=== PATIENT | male | born 1965 | race Caucasian/White ===

== ENCOUNTER 2022-07-30 13:48 | Emergency (ER) | payer BC ==
[~2022-07-30] VITALS: Ht 175.3 cm; Wt 90.9 kg
[2022-07-30 15:42] VITALS: BP 130/75
[2022-07-30] MEDS ORDERED: TETANUS-DIPTH-ACEL PERTUSSIS 0.5ML SYR Tdap IM ONE (16:30)
[2022-07-30] MEDS ORDERED: cefTRIAXone SOD 1,000 MG VL IM ONE (17:30)
[2022-07-30] MEDS ORDERED: CEPH-510 PO (17:31)
[2022-07-30] MEDS ORDERED: IBUP800T27 PO (17:31)
== END 2022-07-30 17:48 | disposition home or self-care (01) ==
LOC: ER 13:48
DX: S62.665A Nondisplaced fracture of distal phalanx of left ring finger, initial encounter for closed fracture (principal); S61.215A Laceration without foreign body of left ring finger without damage to nail, initial encounter; W22.8XXA Striking against or struck by other objects, initial encounter; Y93.89 Activity, other specified; Y92.89 Other specified places as the place of occurrence of the external cause; Y99.8 Other external cause status
CPT/HCPCS: 12002; 73140; 90471; 90715; 96372; 99284; J0696